=== PATIENT | male | born 1990 | race Caucasian/White ===

== ENCOUNTER 2018-07-23 13:04 | Emergency (ER) | payer SELFPAY ==
[2018-07-23 13:15] VITALS: BP 135/72; PULSE 95; TEMP 99.5; BMI 56.8
--- NOTE | 2018-07-23 14:49 | PDOC ---
History of Present Illness - General Chief Complaint: Vomiting/Diarrhea Stated Complaint: COLD SYMPTOMS Time Seen by Provider: 07/23/18 14:16 - History of Present Illness Initial Comments: 07/23/18 14:46 27-year-old male with upper respiratory and and cough symptoms 3 days. 2 episodes of posttussive vomiting this morning subjective fever at home unmeasured. Past History - Past Medical History Allergies/Adverse Reactions: Allergies Allergy/AdvReac Type Severity Reaction Status Date / Time No Known Allergies Allergy Verified 07/23/18 13:15 Home Medications: Ambulatory Orders NK [No Known Home Medication] 07/23/18 COPD: No Diabetes: Yes - Surgical History Cardiac Surgery: No Gastric Stapling: No Neurologic Surgery: No - Immunization History Immunization Up to Date: No - Suicide/Smoking/Psychosocial Hx Smoking History: Never smoked Have you smoked in the past 12 months: No Information on smoking cessation initiated: No Hx Alcohol Use: No Drug/Substance Use Hx: No Review of Systems - Review of Systems Constitutional: Yes: Fever Respiratory: Yes: Cough ABD/GI: Yes: Vomiting *Physical Exam - Vital Signs Last Vital Signs Temp Pulse Resp BP Pulse Ox 99.5 F 95 H 18 135/72 95 07/23/18 13:13 07/23/18 13:13 07/23/18 13:13 07/23/18 13:13 07/23/18 13:13 - Physical Exam Comments: 07/23/18 14:48 HEAD: NC/AT EYES: Conjuntiva clear Ears: Canals and TM's normal NOSE: No d/c THROAT: Moist mucous membrances, oral pharanx clear, uvula midline NECK: Supple without adenopathy CARDIAC: S1 S2 LUNGS: R basilar ronchi cleared with cough otherwise clear ABDOMEN: Soft NT ND MS: Full ROM in all joints without edema NEUROLOGIC: No gross sensory or motor deficits, NVID SKIN: Normal color and temperature no lesions or rashes 07/23/18 14:48 Moderate Sedation - Procedure Monitoring Vital Signs: Procedure Monitoring Vital Signs Temperature 99.5 F 07/23/18 13:13 Pulse Rate 95 H 07/23/18 13:13 Respiratory Rate 18 07/23/18 13:13 Blood Pressure 135/72 07/23/18 13:13 O2 Sat by Pulse Oximetry (%) 95 07/23/18 13:13 ED Treatment Course - RADIOLOGY Radiology Studies Ordered: Category Date Time Status CHEST PA & LAT [RAD] Stat Radiology 07/23/18 14:19 Taken Medical Decision Making - Medical Decision Making 07/23/18 14:48 CXR NAD *DC/Admit/Observation/Transfer Diagnosis at time of Disposition: Upper respiratory infection - Discharge Dispostion Disposition: HOME Condition at time of disposition: Stable Decision to Admit order: No - Referrals Referrals: Ashwin Galvez MD, MD [Primary Care Provider] - - Patient Instructions Printed Discharge Instructions: DI for Viral Upper Respiratory Infection -- Adult Additional Instructions: Return to the emergency room should symptoms worsen a little unresolved. Please take Tylenol and Motrin as directed for fever Mucinex DM as directed for cough and follow up with her primary care physician in one to 2 days for further evaluation and treatment options - Post Discharge Activity
== END 2018-07-23 14:52 | disposition home or self-care (01) ==
LOC: JERFT 13:04
CPT/HCPCS: 71046-TC-FY; 99281-25

== ENCOUNTER 2021-02-15 11:17 | Emergency (ER) | payer OTHER ==
[2021-02-15 11:34] VITALS: BMI 51.7
[2021-02-15 12:52] LABS: BASO % 0.6 % (0-2.0); EOS % 1.1 % (0-4.5); HEMATOCRIT 42.8 % (35.4-49); HEMOGLOBIN 14.1 GM/dL (11.7-16.9); LYMPH % 17.4 % (8-40); MCH 28.4 pg (25.7-33.7); MCHC 32.9 g/dl (32.0-35.9); MEAN CELL VOLUME 86.3 fl (80-96); MEAN PLT VOLUME 8.1 fl (7.5-11.1); MONO % 10.4 % (3.8-10.2); NEUT % 70.5 % (42.8-82.8); PLATELET COUNT 302 10^3/uL (134-434); RBC 4.96 M/mm3 (4.00-5.60); RDW 12.8 % (11.9-15.9); WHITE BLOOD COUNT 11.8 K/mm3 (4.0-10.0)
[2021-02-15 13:14] LABS: ALBUMIN 3.8 g/dl (3.4-5.0); BLOOD UREA NITROGEN 13.1 mg/dL (7-18); CALCIUM 8.7 mg/dL (8.5-10.1)
[2021-02-15 13:17] LABS: CREATININE 1.2 mg/dL (0.55-1.3)
[2021-02-15 13:19] LABS: BILIRUBIN,TOTAL 0.6 mg/dL (0.2-1); TOT PROT 8.1 g/dl (6.4-8.2)
[2021-02-15] MEDS ORDERED: SULFAMETHOXAZOLE/TRIMETHOPRIM 800MG/160MG D.S. TABLET PO ONE (13:23)
[2021-02-15] MEDS ORDERED: SULFAMETHOXAZOLE/TRIMETHOPRIM 800MG/160MG D.S. TABLET ONE (13:30)
[2021-02-15] MEDS ORDERED: CEFAZOLIN 1 GM PUSH 1 GM/10 ML SYRINGE IVPUSH ONE (13:30)
[2021-02-15] MEDS ORDERED: CEFAZOLIN 1 GM/D5W 1 GM/50 ML BAG ONE (13:45)
[2021-02-15] MEDS ORDERED: CEFAZOLIN 1 GM in DEXTROSE 5%-WATER - 50 ML IVPB ONE (13:45)
[2021-02-15 15:04] LABS: PH,URINE 6.5 (5.0-8.0); URINE APPEARANCE CLEAR; URINE BILIRUBIN NEGATIVE (NEGATIVE); URINE COLOR YELLOW; URINE GLUCOSE (UA) NEGATIVE (NEGATIVE); URINE KETONE TRACE (NEGATIVE); URINE LEUK ESTERASE NEGATIVE (NEGATIVE); URINE NITRITE NEGATIVE (NEGATIVE); URINE PROTEIN NEGATIVE (NEGATIVE)
[2021-02-15 16:10] VITALS: BP 112/52; PULSE 85; TEMP 97.9
== END 2021-02-15 15:09 | disposition home or self-care (01) ==
LOC: JER 11:17
DX: L03.116 Cellulitis of left lower limb (principal); R60.0 Localized edema
CPT/HCPCS: 36415; 71046-TC-FY; 80053; 81003; 85025; 87040; 93970-TC; 99285-25

== ENCOUNTER 2022-01-10 20:58 | Inpatient (IN) | payer OTHER ==
[2022-01-10] MEDS ORDERED: ACETAMINOPHEN 1000 MG/100 ML BAG IVPB ONE (22:28)
[2022-01-10] MEDS ORDERED: SODIUM CHLORIDE 0.9% 500 ML INFUS.BAG IV ONE (22:28)
[2022-01-10] MEDS ORDERED: ACETAMINOPHEN INJECTION 100 ML IVPB ONE (23:49)
[2022-01-10] MEDS ORDERED: CLINDAMYCIN 600MG PREMIX IVPB 600 MG/50 ML BAG IVPB ONE (23:56)
[2022-01-11 00:07] LABS: HEMATOCRIT 42.3 % (35.4-49); MCH 27.8 pg (25.7-33.7); MCHC 33.1 g/dl (32.0-35.9); MEAN CELL VOLUME 84.3 fl (80-96); MEAN PLT VOLUME 7.4 fl (7.5-11.1); PLATELET COUNT 311 10^3/uL (134-434); RBC 5.02 M/mm3 (4.00-5.60); RDW 13.1 % (11.9-15.9); WHITE BLOOD COUNT 21.4 K/mm3 (4.0-10.0)
[2022-01-11 00:11] LABS: VENOUS BASE EXCESS 0.2 mmol/L (-2-2); VENOUS O2 SATURATION 35.7 % (70-80); VENOUS PCO2 43.2 mmHg (38-52); VENOUS PH 7.388 (7.310-7.410)
[2022-01-11 00:27] LABS: CALCIUM 9.4 mg/dL (8.5-10.1); INR 1.38 (0.83-1.09); PROTHROMBIN TIME (PATIENT) 15.9 SEC (9.7-13.0)
[2022-01-11 00:28] LABS: ALBUMIN 3.9 g/dl (3.4-5.0); BLOOD UREA NITROGEN 14.3 mg/dL (7-18)
[2022-01-11 00:31] LABS: CREATININE 1.7 mg/dL (0.55-1.3)
[2022-01-11 00:34] LABS: BILIRUBIN,TOTAL 0.6 mg/dL (0.2-1); TOT PROT 8.6 g/dl (6.4-8.2)
[2022-01-11 01:30] LABS: EPI CELLS 2 /uL (0-25.1); HYALINE CASTS 1 /uL (0-3.1); PH,URINE 7.5 (5.0-8.0); URINE APPEARANCE CLEAR; URINE BACTERIA 4 /uL (0-1359); URINE BILIRUBIN NEGATIVE (NEGATIVE); URINE COLOR YELLOW; URINE GLUCOSE (UA) NEGATIVE (NEGATIVE); URINE KETONE NEGATIVE (NEGATIVE); URINE LEUK ESTERASE NEGATIVE (NEGATIVE); URINE NITRITE NEGATIVE (NEGATIVE); URINE PROTEIN 1+ (NEGATIVE); URINE RBC 7 /uL (0-23.9); URINE WBC 2 /uL (0-25.8)
[2022-01-11 01:49] LABS: PLATELET ESTIMATE ADEQUATE
[2022-01-11] MEDS ORDERED: CLINDAMYCIN 600MG PREMIX IVPB 600 MG/50 ML BAG IVPB ONE (02:43)
[2022-01-11] MEDS ORDERED: ACETAMINOPHEN 1000 MG/100 ML BAG IVPB PRN (03:49)
[2022-01-11] MEDS: SODIUM CHLORIDE 1,000 ML IV SCH ×2 (05:00→18:37)
[2022-01-11] MEDS: HEPARIN NA (PORCINE) 5,000 UNITS/ML 1ML VIAL SQ SCH ×3 (06:24→22:10)
[2022-01-11] MEDS ORDERED: CLINDAMYCIN 600MG PREMIX IVPB 600 MG/50 ML BAG IVPB SCH (10:00)
[2022-01-11 10:45] LABS: HEMATOCRIT 42.5 % (35.4-49); HEMOGLOBIN 13.9 GM/dL (11.7-16.9); MCHC 32.8 g/dl (32.0-35.9); MEAN CELL VOLUME 85.2 fl (80-96); MEAN PLT VOLUME 8.3 fl (7.5-11.1); PLATELET COUNT 306 10^3/uL (134-434); RBC 4.98 M/mm3 (4.00-5.60); RDW 13.1 % (11.9-15.9); WHITE BLOOD COUNT 21.2 K/mm3 (4.0-10.0)
[2022-01-11 10:55] VITALS: BMI 50.5
[2022-01-11 10:59] LABS: CHLORIDE 101 mmol/L (98-107); SODIUM 137 mmol/L (136-145)
[2022-01-11 11:06] LABS: ALBUMIN 3.9 g/dl (3.4-5.0); BLOOD UREA NITROGEN 15.8 mg/dL (7-18); SGOT/AST 19 U/L (15-37)
[2022-01-11 11:07] LABS: TOT PROT 8.2 g/dl (6.4-8.2)
[2022-01-11 11:08] LABS: BILIRUBIN,TOTAL 0.8 mg/dL (0.2-1)
[2022-01-11 11:10] LABS: ALK PHOS 91 U/L (45-117); ANION GAP 10 MMOL/L (8-16); CO2 26 mmol/L (21-32); CREATININE 1.6 mg/dL (0.55-1.3); GLUCOSE,RANDOM 102 mg/dL (74-106); MAGNESIUM 1.8 mg/dL (1.8-2.4); PHOSPHOROUS 3.3 mg/dL (2.5-4.9); SGPT/ALT 48 U/L (13-61)
[2022-01-11] MEDS ORDERED: PIPERACILLIN/TAZOB 3.375 GM 3.375 GM in DEXTROSE 5%-WATER - 50 ML IVPB ONE (15:00)
[2022-01-11] MEDS ORDERED: VANCOMYCIN/WATER 2 GRAMS 2,000 MG/400 ML PIGGYBACK IVPB ONE (15:00)
[2022-01-11] MEDS ORDERED: DEXTROSE 5%-WATER - 50 ML IVPB ONE (15:19)
[2022-01-11] MEDS ORDERED: PIPERACILLIN/TAZOBACTAM 3.375 GM VIAL IVPB ONE (15:19)
[2022-01-11] MEDS ORDERED: ONDANSETRON 4 MG/2 ML VIAL IVPUSH ONE (15:54)
[2022-01-12] MEDS: SODIUM CHLORIDE 1,000 ML IV SCH (05:45)
[2022-01-12] MEDS: HEPARIN NA (PORCINE) 5,000 UNITS/ML 1ML VIAL SQ SCH ×3 (05:46→22:34)
[2022-01-12] MEDS ORDERED: PIPERACILLIN/TAZOB 3.375 GM 3.375 GM in DEXTROSE 5%-WATER - 50 ML IVPB ONE (09:29)
[2022-01-12] MEDS ORDERED: VANCOMYCIN 1 GM in D5W (PRE-DOCKED) 1,000 MG/250 ML IVPB ONE (09:29)
[2022-01-12] MEDS: LACTOBACILLUS ACIDOPHILUS 1 TABLET PO SCH (09:38)
[2022-01-12 09:56] LABS: HEMATOCRIT 40.7 % (35.4-49); HEMOGLOBIN 13.6 GM/dL (11.7-16.9); MCH 28.3 pg (25.7-33.7); MCHC 33.5 g/dl (32.0-35.9); MEAN CELL VOLUME 84.6 fl (80-96); MEAN PLT VOLUME 7.8 fl (7.5-11.1); PLATELET COUNT 251 10^3/uL (134-434); RBC 4.81 M/mm3 (4.00-5.60); WHITE BLOOD COUNT 10.2 K/mm3 (4.0-10.0)
[2022-01-12 10:18] LABS: CALCIUM 8.9 mg/dL (8.5-10.1)
[2022-01-12 10:19] LABS: BLOOD UREA NITROGEN 11.8 mg/dL (7-18); PHOSPHOROUS 2.8 mg/dL (2.5-4.9)
[2022-01-12 10:20] LABS: MAGNESIUM 2.3 mg/dL (1.8-2.4)
[2022-01-12 10:22] LABS: CREATININE 1.2 mg/dL (0.55-1.3)
[2022-01-12] MEDS ORDERED: DEXTROSE 5%-WATER - 50 ML IVPB ONE ×2 (10:54→16:01)
[2022-01-12] MEDS ORDERED: PIPERACILLIN/TAZOBACTAM 3.375 GM VIAL IVPB ONE ×2 (10:54→16:01)
[2022-01-12] MEDS: PIPERACILLIN/TAZOB 3.375 GM 3.375 GM in DEXTROSE 5%-WATER - 50 ML IVPB SCH ×2 (12:39→18:13)
[2022-01-13] MEDS ORDERED: PIPERACILLIN/TAZOBACTAM 3.375 GM VIAL IVPB ONE ×3 (02:17→17:26)
[2022-01-13] MEDS ORDERED: DEXTROSE 5%-WATER - 50 ML IVPB ONE ×3 (02:18→17:26)
[2022-01-13] MEDS: PIPERACILLIN/TAZOB 3.375 GM 3.375 GM in DEXTROSE 5%-WATER - 50 ML IVPB SCH ×3 (02:34→17:32)
[2022-01-13] MEDS: SODIUM CHLORIDE 1,000 ML IV SCH (06:35)
[2022-01-13] MEDS: HEPARIN NA (PORCINE) 5,000 UNITS/ML 1ML VIAL SQ SCH ×3 (06:36→21:07)
[2022-01-13 08:23] LABS: HEMATOCRIT 40.5 % (35.4-49); HEMOGLOBIN 13.6 GM/dL (11.7-16.9); MCH 28.6 pg (25.7-33.7); MCHC 33.6 g/dl (32.0-35.9); MEAN CELL VOLUME 85.4 fl (80-96); MEAN PLT VOLUME 8.2 fl (7.5-11.1); PLATELET COUNT 250 10^3/uL (134-434); RBC 4.74 M/mm3 (4.00-5.60); RDW 13.3 % (11.9-15.9); WHITE BLOOD COUNT 7.2 K/mm3 (4.0-10.0)
[2022-01-13 08:40] LABS: BLOOD UREA NITROGEN 13.7 mg/dL (7-18); MAGNESIUM 2.3 mg/dL (1.8-2.4)
[2022-01-13 08:43] LABS: CREATININE 1.2 mg/dL (0.55-1.3); PHOSPHOROUS 3.5 mg/dL (2.5-4.9)
[2022-01-13] MEDS: LACTOBACILLUS ACIDOPHILUS 1 TABLET PO SCH (10:04)
[2022-01-14] MEDS ORDERED: PIPERACILLIN/TAZOBACTAM 3.375 GM VIAL IVPB ONE ×2 (01:08→08:59)
[2022-01-14] MEDS ORDERED: DEXTROSE 5%-WATER - 50 ML IVPB ONE (01:08)
[2022-01-14] MEDS: PIPERACILLIN/TAZOB 3.375 GM 3.375 GM in DEXTROSE 5%-WATER - 50 ML IVPB SCH ×2 (01:13→09:55)
[2022-01-14] MEDS: SODIUM CHLORIDE 1,000 ML IV SCH (05:42)
[2022-01-14] MEDS: HEPARIN NA (PORCINE) 5,000 UNITS/ML 1ML VIAL SQ SCH ×2 (05:42→13:36)
[2022-01-14 09:31] LABS: HEMATOCRIT 41.2 % (35.4-49); HEMOGLOBIN 13.9 GM/dL (11.7-16.9); MCH 28.3 pg (25.7-33.7); MCHC 33.8 g/dl (32.0-35.9); MEAN CELL VOLUME 83.7 fl (80-96); MEAN PLT VOLUME 7.7 fl (7.5-11.1); PLATELET COUNT 301 10^3/uL (134-434); RBC 4.92 M/mm3 (4.00-5.60); RDW 12.8 % (11.9-15.9); WHITE BLOOD COUNT 8.8 K/mm3 (4.0-10.0)
[2022-01-14 09:51] VITALS: BP 123/58; PULSE 59; TEMP 97.9
[2022-01-14 09:54] LABS: BLOOD UREA NITROGEN 13.5 mg/dL (7-18); CALCIUM 8.6 mg/dL (8.5-10.1)
[2022-01-14] MEDS: LACTOBACILLUS ACIDOPHILUS 1 TABLET PO SCH (09:55)
[2022-01-14 09:58] LABS: CREATININE 1.1 mg/dL (0.55-1.3); PHOSPHOROUS 3.9 mg/dL (2.5-4.9)
== END 2022-01-14 14:58 | disposition home or self-care (01) | DRG 872 ==
LOC: JER 20:58 → JERBED 01-11 00:41 → J6S 01-11 05:53
PROVIDERS: ADMIT Internal Medicine; ATTEND Internal Medicine
DX: A41.89 Other specified sepsis (principal); N17.9 Acute kidney failure, unspecified; L03.116 Cellulitis of left lower limb; Z68.43 Body mass index [BMI] 50.0-59.9, adult; R00.0 Tachycardia, unspecified; E66.01 Morbid (severe) obesity due to excess calories; R50.9 Fever, unspecified; D72.829 Elevated white blood cell count, unspecified; R73.03 Prediabetes; I87.2 Venous insufficiency (chronic) (peripheral); I89.0 Lymphedema, not elsewhere classified; M54.50 Low back pain, unspecified
CPT/HCPCS: 0241U-QW; 36415; 71045-TC-FY; 76775-TC; 80048; 80053; 81003; 82550; 82553; 82803; 82962; 83036; 83605; 83735; 84100; 85025; 85027; 85610; 85730; 86850; 86900; 86901; 87040; 87086; 93005; 93010; 93971-TC; 99285-25; J1644

== ENCOUNTER 2024-06-25 09:17 | Inpatient (IN) | payer OTHER ==
[2024-06-25] MEDS ORDERED: ACETAMINOPHEN INJECTION 100 ML ONE (09:59)
[2024-06-25] MEDS: ACETAMINOPHEN 1000 MG/100 ML BAG IVPB ONE (10:17)
[2024-06-25] MEDS: SODIUM CHLORIDE 0.9% 1000 ML INFUS.BAG IV STA (10:17)
[2024-06-25] MEDS: SODIUM CHLORIDE 0.9% 500 ML INFUS.BAG IV ONE (10:18)
[2024-06-25 11:01] LABS: BASO % 0.4 % (0-2.0); EOS % 0.6 % (0-4.5); HEMATOCRIT 42.3 % (35.4-49); HEMOGLOBIN 14.3 GM/dL (11.7-16.9); MCH 28.7 pg (25.7-33.7); MCHC 33.7 g/dl (32.0-35.9); MEAN CELL VOLUME 85.2 fl (80-96); MEAN PLT VOLUME 8.2 fl (7.5-11.1); MONO % 6.4 % (3.8-10.2); NEUT % 83.6 % (42.8-82.8); PLATELET COUNT 292 10^3/uL (134-434); RBC 4.96 M/mm3 (4.00-5.60); RDW 13.5 % (11.9-15.9); WHITE BLOOD COUNT 12.6 K/mm3 (4.0-10.0)
[2024-06-25 11:02] LABS: URINE APPEARANCE CLEAR; URINE BILIRUBIN NEGATIVE (NEGATIVE); URINE COLOR YELLOW; URINE GLUCOSE (UA) NEGATIVE (NEGATIVE); URINE KETONE NEGATIVE (NEGATIVE); URINE LEUK ESTERASE NEGATIVE (NEGATIVE); URINE NITRITE NEGATIVE (NEGATIVE); URINE PROTEIN TRACE (NEGATIVE)
[2024-06-25 11:04] LABS: VENOUS BASE EXCESS 0.7 mmol/L (-2-2); VENOUS O2 SATURATION 51.4 % (70-80); VENOUS PCO2 48.7 mmHg (38-52); VENOUS PH 7.36 (7.310-7.410)
[2024-06-25 11:08] LABS: INR 1.14 (0.83-1.09); PROTHROMBIN TIME (PATIENT) 12.8 SEC (9.7-13.0)
[2024-06-25 11:11] LABS: ACTIVATED PTT 30.4 SECONDS (25.2-36.5)
[2024-06-25 11:14] LABS: POTASSIUM 4.2 mmol/L (3.5-5.1)
[2024-06-25 11:17] LABS: CALCIUM 9.1 mg/dL (8.5-10.1)
[2024-06-25 11:18] LABS: ALBUMIN 3.9 g/dl (3.4-5.0); BLOOD UREA NITROGEN 13.6 mg/dL (7-18)
[2024-06-25 11:21] LABS: CREATININE 1.3 mg/dL (0.55-1.3)
[2024-06-25 11:24] LABS: BILIRUBIN,TOTAL 0.6 mg/dL (0.2-1); TOT PROT 8.1 g/dl (6.4-8.2)
[2024-06-25 11:36] LABS: LACTIC ACID 3.2 mmol/L (0.4-2.0)
[2024-06-25] MEDS ORDERED: VANCOMYCIN 1 GRAM (PRE-DOCKED) 1,000 MG/250 ML BAG IVPB ONE (11:44)
[2024-06-25] MEDS: VANCOMYCIN 1,000 MG in DEXTROSE 5%-WATER - 250 ML IVPB ONE (11:50)
[2024-06-25 12:49] LABS: ERYTHROCYTE SEDIMENTATION RATE 18 mm/hr (0-10)
[2024-06-25] MEDS ORDERED: METHOCARBAMOL 500 MG TABLET ONE (14:09)
[2024-06-25] MEDS: LACTATED RINGERS SOLUTION 1,000 ML IV SCH (15:32)
[2024-06-25] MEDS: AMPICILLIN NA/SULBACTAM NA 3 GM in SODIUM CHLORIDE 100 ML IVPB SCH (17:39)
[2024-06-25 19:33] VITALS: BMI 61.0
[2024-06-25 19:52] LABS: HIV INTERPRETATION NEGATIVE (NEGATIVE)
[2024-06-25] MEDS: ACETAMINOPHEN 325 MG TABLET (FP) PO PRN (21:30)
[2024-06-25] MEDS: KETOROLAC TROMETHAMINE 15 MG/ML VIAL IVPUSH PRN (22:51)
[2024-06-26 08:31] LABS: HEMATOCRIT 39.1 % (35.4-49); HEMOGLOBIN 12.9 GM/dL (11.7-16.9); MCH 28.1 pg (25.7-33.7); MCHC 32.8 g/dl (32.0-35.9); MEAN CELL VOLUME 85.4 fl (80-96); MEAN PLT VOLUME 7.4 fl (7.5-11.1); PLATELET COUNT 233 10^3/uL (134-434); RBC 4.58 M/mm3 (4.00-5.60); RDW 13.3 % (11.9-15.9); WHITE BLOOD COUNT 11.5 K/mm3 (4.0-10.0)
[2024-06-26 08:49] LABS: POTASSIUM 3.7 mmol/L (3.5-5.1)
[2024-06-26 08:59] LABS: CALCIUM 8.6 mg/dL (8.5-10.1)
[2024-06-26 09:00] LABS: ALBUMIN 3.3 g/dl (3.4-5.0); BLOOD UREA NITROGEN 15.7 mg/dL (7-18)
[2024-06-26] MEDS: ENOXAPARIN NA (PORCINE) 40 MG/0.4 ML DISP.SYRIN SQ SCH ×2 (09:02→21:38)
[2024-06-26 09:03] LABS: CREATININE 1.1 mg/dL (0.55-1.3)
[2024-06-26 09:04] LABS: BILIRUBIN,TOTAL 0.8 mg/dL (0.2-1); TOT PROT 7.1 g/dl (6.4-8.2)
[2024-06-26] MEDS: SODIUM CHLORIDE 1,000 ML IV SCH (15:12)
[2024-06-26] MEDS: CEFAZOLIN SODIUM 2 GM in DEXTROSE 5%-WATER 100 ML IVPB SCH (16:12)
[2024-06-26] MEDS: SODIUM CHLORIDE 1,000 ML IV STA (21:14)
[2024-06-27] MEDS: CEFAZOLIN 2 GM/D5W 2 GM/50 ML ML IVPB SCH (01:05)
[2024-06-27 11:05] LABS: BASO % 0.6 % (0-2.0); HEMATOCRIT 39.9 % (35.4-49); HEMOGLOBIN 13.1 GM/dL (11.7-16.9); LYMPH % 21.5 % (8-40); MCH 28.3 pg (25.7-33.7); MCHC 32.9 g/dl (32.0-35.9); MEAN CELL VOLUME 85.9 fl (80-96); MEAN PLT VOLUME 7.8 fl (7.5-11.1); MONO % 10.9 % (3.8-10.2); PLATELET COUNT 231 10^3/uL (134-434); RBC 4.64 M/mm3 (4.00-5.60); WHITE BLOOD COUNT 8.4 K/mm3 (4.0-10.0)
[2024-06-27 11:17] LABS: POTASSIUM 4.1 mmol/L (3.5-5.1)
[2024-06-27 11:20] LABS: BLOOD UREA NITROGEN 15.1 mg/dL (7-18); CALCIUM 8.9 mg/dL (8.5-10.1)
[2024-06-27 14:04] VITALS: BP 125/68; PULSE 87; RESP 20; TEMP 98.3
== END 2024-06-27 16:00 | disposition home or self-care (01) | DRG 872 ==
LOC: JER 09:17 → JERBED 13:02 → J5S 16:53
PROVIDERS: ADMIT Internal Medicine; ATTEND Internal Medicine
DX: A41.9 Sepsis, unspecified organism (principal); L03.116 Cellulitis of left lower limb; Z68.44 Body mass index [BMI] 60.0-69.9, adult; E66.01 Morbid (severe) obesity due to excess calories; B35.1 Tinea unguium; I89.0 Lymphedema, not elsewhere classified
CPT/HCPCS: 0241U-QW; 36415; 71045-TC-FY; 80048; 80053; 81003; 82550; 82553; 82803; 83036; 83605; 84484; 85025; 85027; 85610; 85651; 85730; 86140; 86803; 86850; 86900; 86901; 87040; 87086; 87389; 93005; 93010; 99285-25; J0131

== ENCOUNTER 2025-01-27 11:34 | Inpatient (IN) | payer OTHER ==
[2025-01-27] MEDS ORDERED: ACETAMINOPHEN INJECTION 100 ML ONE ×2 (12:51→13:46)
[2025-01-27] MEDS: LACTATED RINGERS SOLUTION 1000 ML INFUS.BAG IV ONE (14:01)
[2025-01-27] MEDS: ACETAMINOPHEN 1000 MG/100 ML BAG IVPB ONE (14:02)
[2025-01-27] MEDS ORDERED: PIPERACILLIN/TAZOB 3.375 GM 3.375 GM/50 ML BAG IVPB ONE (14:04)
[2025-01-27] MEDS: PIPERACILLIN/TAZOB 3.375 GM 3.375 GM in DEXTROSE 5%-WATER - 50 ML IVPB ONE (14:04)
[2025-01-27] MEDS ORDERED: ONDANSETRON 4 MG/2 ML VIAL ONE (14:20)
[2025-01-27] MEDS: ONDANSETRON 4 MG/2 ML VIAL IVPUSH ONE (14:25)
[2025-01-27 14:49] LABS: VENOUS O2 SATURATION 50.4 % (70-80); VENOUS PCO2 50.8 mmHg (38-52); VENOUS PH 7.365 (7.310-7.410)
[2025-01-27 14:53] LABS: HEMATOCRIT 44.7 % (40.1-51.0); HEMOGLOBIN 14.5 g/dL (13.7-17.5); MCHC 32.4 g/dl (32.3-36.5); MEAN CELL VOLUME 87.5 fl (79.0-92.2); MEAN PLT VOLUME 9.8 fl (9.4-12.4); PLATELET COUNT 279 x10^3/uL (163-337); RDW 12.2 % (12.0-15.6)
[2025-01-27 15:01] LABS: INR 1.14 (0.83-1.09); PROTHROMBIN TIME (PATIENT) 12.5 SEC (9.7-13.0)
[2025-01-27 15:03] LABS: ACTIVATED PTT 27.8 SECONDS (25.2-36.5)
[2025-01-27 15:20] LABS: POTASSIUM 4.3 mmol/L (3.5-5.1)
[2025-01-27 15:24] LABS: CALCIUM 9.5 mg/dL (8.5-10.1)
[2025-01-27 15:25] LABS: ALBUMIN 3.9 g/dl (3.4-5.0); BLOOD UREA NITROGEN 15.1 mg/dL (7-18)
[2025-01-27 15:27] LABS: CREATININE 1.3 mg/dL (0.55-1.3)
[2025-01-27 15:29] LABS: BILIRUBIN,TOTAL 0.8 mg/dL (0.2-1); TOT PROT 8.2 g/dl (6.4-8.2)
[2025-01-27 15:33] LABS: LACTIC ACID 2.1 mmol/L (0.4-2.0)
[2025-01-27] MEDS ORDERED: IBUPROFEN 600 MG TABLET (FP) PO ONE (16:22)
[2025-01-27] MEDS: VANCOMYCIN/WATER 2 GRAMS 2,000 MG/400 ML PIGGYBACK IVPB ONE (16:42)
[2025-01-27] MEDS: VANCOMYCIN 2,000 MG in DEXTROSE 5%-WATER - 500 ML IVPB ONE (19:26)
[2025-01-27] MEDS: LACTATED RINGERS SOLUTION 1,000 ML/1,000 ML INFUS.BAG IV STA ×2 (22:37→23:07)
[2025-01-27] MEDS: ENOXAPARIN NA (PORCINE) 40 MG/0.4 ML DISP.SYRIN SQ SCH (23:07)
[2025-01-27] MEDS: PIPERACILLIN/TAZOB 3.375 GM 3.375 GM in DEXTROSE 5%-WATER - 50 ML IVPB SCH (23:07)
[2025-01-28 00:52] LABS: ARTERIAL BLOOD GAS BASE EXCESS 0.9 mmol/L (-2-2); ARTERIAL BLOOD GAS PO2 77.5 mmHg (80-100); ARTERIAL BLOOD GAS pH 7.369 (7.350-7.450); O2 CONTENT 1.85 % vol
[2025-01-28 00:57] LABS: ALLENS TEST POSITIVE
[2025-01-28] MEDS: LACTATED RINGERS SOLUTION 1000 ML INFUS.BAG IV ONE (01:04)
[2025-01-28] MEDS: NYSTATIN POWDER 100,000 UNITS/GM - 15 GM TOPICAL POWDER TP SCH (02:05)
[2025-01-28] MEDS: ACETAMINOPHEN 325 MG TABLET (FP) PO ONE (02:06)
[2025-01-28 05:03] VITALS: BMI 62.4
[2025-01-28 08:16] LABS: ABSOLUTE IMMATURE GRANULOCYTES 0.08 x10^3/uL (0.0-0.031); BASOPHILS # 0.05 x10^3/uL (0.01-0.08); HEMATOCRIT 41.9 % (40.1-51.0); HEMOGLOBIN 13.5 g/dL (13.7-17.5); MCHC 32.2 g/dl (32.3-36.5); MEAN CELL VOLUME 88.4 fl (79.0-92.2); MEAN PLT VOLUME 9.2 fl (9.4-12.4); MONOCYTE % 6.3 % (5.3-12.2); PLATELET COUNT 220 x10^3/uL (163-337); RDW 12.2 % (12.0-15.6)
[2025-01-28 08:22] LABS: URINE APPEARANCE CLEAR; URINE BILIRUBIN NEGATIVE (NEGATIVE); URINE COLOR YELLOW; URINE GLUCOSE (UA) NEGATIVE (NEGATIVE); URINE KETONE NEGATIVE (NEGATIVE); URINE LEUK ESTERASE NEGATIVE (NEGATIVE); URINE NITRITE NEGATIVE (NEGATIVE); URINE PROTEIN NEGATIVE (NEGATIVE); URINE UROBILINOGEN 0.2 mg/dL (0.2-1.0)
[2025-01-28 08:39] LABS: POTASSIUM 4.2 mmol/L (3.5-5.1)
[2025-01-28 08:57] LABS: CALCIUM 8.8 mg/dL (8.5-10.1)
[2025-01-28 08:59] LABS: ALBUMIN 3.4 g/dl (3.4-5.0); BLOOD UREA NITROGEN 16.8 mg/dL (7-18)
[2025-01-28 09:02] LABS: BILIRUBIN,TOTAL 0.7 mg/dL (0.2-1); CREATININE 1.2 mg/dL (0.55-1.3); TOT PROT 7.2 g/dl (6.4-8.2)
[2025-01-28] MEDS: ACETAMINOPHEN 1000 MG/100 ML BAG IVPB PRN (10:44)
[2025-01-28] MEDS: PIPERACILLIN/TAZOB 3.375 GM 3.375 GM in DEXTROSE 5%-WATER - 50 ML IVPB SCH ×2 (13:11→18:26)
[2025-01-29 07:55] LABS: ABSOLUTE IMMATURE GRANULOCYTES 0.06 x10^3/uL (0.0-0.031); BASOPHILS # 0.02 x10^3/uL (0.01-0.08); EOSINOPHIL % 1.5 % (0.8-7.0); EOSINOPHILS # 0.17 x10^3/uL (0.04-0.54); HEMATOCRIT 41.5 % (40.1-51.0); HEMOGLOBIN 13.4 g/dL (13.7-17.5); MCHC 32.3 g/dl (32.3-36.5); MEAN CELL VOLUME 87.6 fl (79.0-92.2); MEAN PLT VOLUME 9.5 fl (9.4-12.4); MONOCYTE # 1.07 x10^3/uL (0.30-0.82); MONOCYTE % 9.3 % (5.3-12.2); PLATELET COUNT 246 x10^3/uL (163-337); RDW 12.2 % (12.0-15.6)
[2025-01-29 08:23] LABS: POTASSIUM 4.3 mmol/L (3.5-5.1)
[2025-01-29 09:05] LABS: ALBUMIN 3.4 g/dl (3.4-5.0); CALCIUM 8.9 mg/dL (8.5-10.1)
[2025-01-29 09:09] LABS: BILIRUBIN,TOTAL 0.4 mg/dL (0.2-1); PHOSPHOROUS 2.9 mg/dL (2.5-4.9); TOT PROT 7.3 g/dl (6.4-8.2)
[2025-01-29] MEDS: MINERAL OIL/PET HY-PHL TOPICAL OINTMENT 454 GM JAR TP SCH (13:58)
[2025-01-29] MEDS: PIPERACILLIN/TAZOB 3.375 GM 3.375 GM in DEXTROSE 5%-WATER - 50 ML IVPB SCH (16:03)
[2025-01-29 17:32] VITALS: BP 123/78; PULSE 84; RESP 17; TEMP 98.4
== END 2025-01-29 18:56 | disposition left against medical advice (07) | DRG 872 ==
LOC: JER 11:34 → JERBED 19:30 → J8W 22:22 → OBSVTOIN 01-28 09:55
PROVIDERS: ADMIT Internal Medicine; ATTEND Nurse Practitioner Acute Care
DX: A41.89 Other specified sepsis (principal); L03.116 Cellulitis of left lower limb; Z68.44 Body mass index [BMI] 60.0-69.9, adult; E66.01 Morbid (severe) obesity due to excess calories; R50.9 Fever, unspecified; I89.0 Lymphedema, not elsewhere classified; D72.829 Elevated white blood cell count, unspecified
CPT/HCPCS: 0241U-QW; 36415; 36600; 71046-TC-FY; 73590-TC-LT-FY; 76937; 80053; 81003; 82803; 82962; 83036; 83605; 83735; 83880; 84100; 84484; 85025; 85610; 85730; 86850; 86900; 86901; 87040; 87081; 93005; 93010; 93970-TC; 94660; 99291; G0378